=== PATIENT | male | born 1955 | race Caucasian/White ===

== ENCOUNTER → 2017-04-04 | Outpatient (CLI) | payer OTHER | LOC: RT 08:50 | PROVIDERS: ATTEND Psychiatry & Neurology Neurology | DX: R55 Syncope and collapse (principal) | CPT/HCPCS: 95819 ==

== ENCOUNTER 2017-04-15 15:17 | Emergency (ER) | payer OTHER ==
[2017-04-15 15:30] VITALS: BP 187/78; BMI 22.4
--- NOTE | 2017-04-15 15:49 | DR.GENAD ---
HPI - PCP Primary Care Physician: JOHN - HPI Comment HPI Comment: TRIPED AND FELL AT HOME. PAIN BOTH KNEES WITH ABRSIONS AND SKIN TEARS KNEES AND LEGS. TWISTED LOWER BACK. CHRONIC ARTHRITIS ON MEDS AT HOME. NO LOC,.TD NOT UTD. - Complaint/Symptoms Chief Complaint Doctors Comments: FALL, PAIN KNEES AND LOWER BACK. Chief Complaint:: PT C/O BLIAT KNEE PAIN AND LOWER BACK PAIN S/P FALL. PT STATES HE TRIPPED AND FELL OVER HIS CAT AND FELL ONTO HIS KNEES AND TWISTED HIS BACK. - Nurses notes reviewed Nurses Notes Review: Yes - Source History Provided: Patient - Mode of Arrival Mode of Arrival: Ambulatory - Timing Onset of Chief Complaint: 04/15/17 Came on: Suddenly - Duration Duration: Constant Duration: Hours - Severity Severity: Moderate PMH - PMH Past Medical History: Yes Past Medical History: Diabetes, Hypertension, [place] Past Medical History Comment: CARDIOMYOPATHY, UNSTABLE ANGIA, HEMACROMATOSIS Past Surgical History: Yes Surgical History: Ortho Surgery Past Surgical History Comment: MULITPLE BACK SURGERY - Family History History of Family Medical Conditions: No - Social History Does patient currently use any type of tobacco product: Yes Have you used tobacco products in the last 12 months: Yes Type of Tobacco Use: Cigarettes Does any household member use tobacco: Yes Alcohol Use: Rarely Do you use any recreational Drugs:: No Lives With: Family Lives Where: Home - infectious screening In the last 2 months have you had wt loss of >10#?: NO Have you had fever, night sweats or hemotysis?: No Have you traveled outside the country in the last 6 months?: No Isolation: Standard ROS - Review of Systems Constitutional: Weakness (CHRONIC, GENERALIZE.) Eyes: No Symptoms Reported. negative: Eye Pain, Discharge ENTM: No Symptoms Reported. negative: Ear Pain, Nose Discharge, Nose Congestion , Throat Pain Respiratoy: No Symptoms Reported Cardiovascular: No Symptoms Reported Gastrointestinal/Abdominal: No Symptoms Reported Genitourinary: No Symptoms Reported Neurological: Weakness Musculoskeletal: Back Pain (LOWER BACK), Muscle Pain Integumentary: Bruises, Other (SKIN TEARS AND ABRSSIONS. ) Hematologic/Lymphatic: No Symptoms Reported Endocrine: No Symptoms Reported All Other Systems: Reviewed and Negative PE - Vital Signs Vitals: Temperature 98.0 F Pulse Rate 79 Respiratory Rate 20 Blood Pressure 187/78 O2 Sat by Pulse Oximetry 96 - General Limitations: No Limitations General Appearance: Alert - Head Head Exam: Normal Inspection - Eyes Eye exam: Normal Appearance - ENT ENT Exam: Normal External Ear Exam External Ear Exam: Normal External Inspection TM/Canal Exam: Bilateral Normal Nose Exam: Normal Nose Exam Mouth Exam: Normal Inspection Throat Exam: Normal Inspection - Neck Neck Exam: Trachea Midline. negative: Tenderness, Meningismus, Lymphadenopathy - Chest Chest Inspection: Symmetric Chest Wall Rise - Respiratory Respiratory Exam: Normal Lung Sounds Bilat Respiratory Exam: Bilateral Clear to Auscultation - Cardiovascular Cardiovascular Exam: Regular Rate, Normal Rhythm, Normal Heart Sounds - Abdominal Exam Abdominal Exam: Normal Bowel Sounds, Soft. negative: Tenderness - Extremities Extremities Exam: Tenderness (KNEES), Joint Swelling (BOTH KNEES). negative: Full ROM (DECREASERT KNEE.) - Back Back Exam: Paraspinal Tenderness, Vertebral Tenderness (LOWER BACK) - Neurologic Neurological Exam: Alert, Oriented X3 - Psychiatric Psychiatric Exam: Normal Affect, Normal Mood - Skin Skin Exam: Erythema MDM - Additional Information Additional Information Obtained From: Family - Differential Diagnosis Differential Diagnosis: KNEES AND LOW BACK STRAIN, CONTUSION, SPRAIN, FRACTURE, SKIN TEAR AND ABAIS Course - Treatment Treatment: SEE ORDERS. - Education/Counseling Education/Counseling: Patient, Family, Education Educated On: Diagnosis, Needs for Follow Up ROR - XRAY XRAY Interpreted by: Radiologist XRAY Findings: REPORT DISCUSS WITH PATIENT AND HIS . - Diagnosis Discharge Problem: Knee sprain, bilateral, Skin tear, Abrasion Lumbosacral strain Qualifiers: Encounter type: initial encounter Qualified Code(s): S39.012A - Strain of muscle, fascia and tendon of lower back, initial encounter - Discharge Plan Condition: Stable - Follow ups/Referrals Follow ups/Referrals: ANABEL LOPEZ [Primary Care Provider] - 3 days - Instructions Instructions: Knee Sprain, Skin Tear Care, [id number], Abrasion, Lumbosacral Strain Additional Instructions: RETURN TO ED IF WORSE. CONTINUE PAIN MED YOU HAVE AT HOME.
[2017-04-15] MEDS ORDERED: ADACEL TDaP IM ONE ×2 (15:54→16:14)
--- NOTE | 2017-04-15 16:40 | RAD ---
HISTORY: Fall, pain Study: Three-view left knee Comparison: Small Findings: No evidence for acute cortical disruption or dislocation. The medial and lateral tibiofemoral tam rtments appear unremarkable without loss of significant joint space. The lateral radiograph fails t o demonstrate significant joint effusion. Patellofemoral compartment is normal in its appearance. IMPRESSION: 1. Negative exam. Reported By:
--- NOTE | 2017-04-15 16:40 | RAD ---
HISTORY: Fell and hurt knee Study: Three-view right knee Comparison: None Findings: No evidence for acute cortical disruption or dislocation. The medial and lateral tibiofemoral tam rtments appear unremarkable without loss of significant joint space. The lateral radiograph fails t o demonstrate significant joint effusion. Patellofemoral compartment is normal in its appearance. IMPRESSION: 1. Negative exam. Reported By:
--- NOTE | 2017-04-15 16:45 | RAD ---
HISTORY: Back pain after fall Study: 5 views of the lumbar spine Comparison: None. Findings: Straightening of the normal lumbar spine lordosis. Multilevel degenerative disc disease worst at L5 -S1. Vertebral body heights are normal. Sacroiliac joints are unremarkable. No evidence for acute f racture can be identified. IMPRESSION: 1. Multilevel degenerative disc disease worst at L5-S1. Reported By:
[2017-04-15] MEDS ORDERED: NEOSPORIN OINT ONE (17:09)
== END 2017-04-15 17:18 | disposition home or self-care (01) ==
LOC: ER 15:30
DX: S83.91XA Sprain of unspecified site of right knee, initial encounter (principal); S83.92XA Sprain of unspecified site of left knee, initial encounter; S39.012A Strain of muscle, fascia and tendon of lower back, initial encounter; S83.281A Other tear of lateral meniscus, current injury, right knee, initial encounter; S80.211A Abrasion, right knee, initial encounter; S80.212A Abrasion, left knee, initial encounter; W19.XXXA Unspecified fall, initial encounter; Y92.009 Unspecified place in unspecified non-institutional (private) residence as the place of occurrence of the external cause
CPT/HCPCS: 72110; 73564; 90471; 99282; 99283